=== PATIENT | male | born 1990 | race Caucasian/White ===

== ENCOUNTER 2019-05-14 12:07 | Emergency (ER) | payer SELFPAY, OTHER | END 2019-05-14 18:49 | disposition home or self-care (01) | LOC: FTE 12:07 | DX: M23.91 Unspecified internal derangement of right knee (principal) | CPT/HCPCS: 29505; 73562; 99283-25 ==

== ENCOUNTER 2019-06-01 15:03 | Emergency (ER) | payer SELFPAY | END 2019-06-01 19:07 | disposition home or self-care (01) | LOC: FTE 19:07 | DX: M25.561 Pain in right knee (principal) | CPT/HCPCS: 73562; 99283-25 ==